=== PATIENT | female | born 1990 | race Caucasian/White ===

== ENCOUNTER 2019-01-12 09:26 | Inpatient (IN) | payer BC ==
[2019-01-12 09:58] LABS: ADD MAN DIFF? NO
[2019-01-12 10:01] LABS: BASOPHIL # 0.1 10^3/ul (0.0-0.1); BASOPHILS % 0.6 % (0.0-2.0); EOSINOPHILS # 0.1 10^3/ul (0.0-0.5); EOSINOPHILS % 0.8 % (0.0-7.0); HEMATOCRIT 43.4 % (37.0-47.0); HEMOGLOBIN 13.1 g/dl (12.0-16.0); LYMPHOCYTES # 3.4 10^3/ul (0.8-2.9); MEAN CORPUSCULAR HEMOGLOBIN 27.4 pg (29.0-33.0); MEAN CORPUSCULAR HGB CONC 30.2 g/dl (32.0-37.0); MEAN CORPUSCULAR VOLUME 90.8 fl (82.0-101.0); MEAN PLATELET VOLUME 9.3 fl (7.4-10.4); MONOCYTE # 0.8 10^3/ul (0.3-0.9); MONOCYTES % 5.2 % (0.0-11.0); NEUTROPHIL # 10.8 10^3/ul (1.6-7.5); NEUTROPHILS % 70.9 % (39.0-77.0); PLATELET COUNT 206 10^3/UL (140-415); RED BLOOD COUNT 4.78 10^6/ul (4.20-5.40); RED CELL DISTRIBUTION WIDTH 13.3 % (11.5-14.5)
[2019-01-12 10:01] LABS: WHITE BLOOD COUNT 15.3 10^3/ul (4.8-10.8)
[2019-01-12 10:08] LABS: PARTIAL THROMBOPLASTIN TIME 32.2 Sec (23.0-35.0); PROTIME 14.3 Sec (11.9-14.9); PT RATIO 1.1
[2019-01-12 10:11] LABS: ALBUMIN/GLOBULIN RATIO 1.35; ALKALINE PHOSPHATASE 85 IU/L (42-121); ANION GAP 35 (5-13); ASPARTATE AMINO TRANSFERASE 16 IU/L (15-46); BILIRUBIN,INDIRECT 0.2 mg/dl (0-1.1); BILIRUBIN,TOTAL 0.2 mg/dl (0.2-1.3); BLOOD UREA NITROGEN 65 mg/dl (7-20); CALCIUM 9.2 mg/dl (8.4-10.2); CARBON DIOXIDE 10 mmol/L (21-31); CHLORIDE 96 mmol/L (97-110); GLUCOSE 133 mg/dl (70-220); POTASSIUM 4.8 mmol/L (3.5-5.1); SODIUM 141 mmol/L (135-144); TOTAL PROTEIN 8.7 g/dl (6.1-8.1)
[2019-01-12 10:12] LABS: ALANINE AMINOTRANSFERASE < 6 IU/L (13-69)
[2019-01-12] MEDS: HYDROmorphONE 1 MG/ML SYG IV (10:28)
[2019-01-12] MEDS: LEVETIRACETAM 1000 MG (PMX) 100 ML IVPB (10:29)
[2019-01-12] MEDS: ONDANSETRON 4 MG INJ IV ×2 (10:29→15:23)
[2019-01-12 11:02] LABS: CREATININE 24.34 mg/dl (0.44-1.00); Estimated GFR 2 mL/min (>60)
[2019-01-12] MEDS ORDERED: ACETAMINOPHEN 325 MG TAB PO (13:00)
[2019-01-12] MEDS ORDERED: ONDANSETRON 4 MG INJ IV (13:00)
[2019-01-12] MEDS ORDERED: NACL 0.9% 3 ML SYG IV (14:00)
[2019-01-12] MEDS ORDERED: LORAZEPAM 2 MG INJ IV (14:00)
[2019-01-12] MEDS: SEVELAMER CARBONATE 0.8 GM PKT PO (18:00)
[2019-01-12] MEDS ORDERED: AMPHOTERICIN B LIPOSOME 300 MG in DEXTROSE 5% 300 ML IVPB (18:00)
[2019-01-12] MEDS ORDERED: VANCOMYCIN IV PER PHARMACY XX (18:00)
[2019-01-12] MEDS: FAMOTIDINE 20 MG TAB PO (18:03)
[2019-01-12] MEDS: DEXAMETHASONE 10 MG/ML 1 ML INJ IV (18:11)
[2019-01-12 19:16] LABS: HIV 1&2 ANTIBODY NEGATIVE (NEGATIVE)
[2019-01-12] MEDS ORDERED: LABETALOL HCL 20MG INJ IV (20:00)
[2019-01-12] MEDS ORDERED: DEXTROSE 50% 50 ML SYRINGE IV ×2 (21:00)
[2019-01-12] MEDS ORDERED: GLUCAGON 1 MG INJ IM (21:00)
[2019-01-12] MEDS ORDERED: GLUCOSE GEL 15 GRAM TUBE BUCCAL (21:00)
[2019-01-12] MEDS ORDERED: GLUCOSE GEL 15 GRAM TUBE PO ×2 (21:00)
[2019-01-12] MEDS: METOPROLOL 25 MG TAB PO (21:00)
[2019-01-12] MEDS ORDERED: LEVETIRACETAM 500 MG (PMX) 100 ML IVPB (21:00)
[2019-01-12] MEDS: INSULIN ASPART [NOVOLOG] 3 ML PEN SC (21:00)
[2019-01-12] MEDS: hydrALAzine 20 MG INJ IV (22:12)
[2019-01-12] MEDS: SOD CHLORIDE 0.9% 1,000 ML IV (23:03)
[2019-01-12] MEDS: HEPARIN 1000 UNITS/ML 10 ML INJ CATHETER (23:24)
[2019-01-12] MEDS: AMPICILLIN 2 GM/NS (PMX) 100 ML IVPB (23:48)
[2019-01-12] MEDS: CEFEPIME 1GM/50 ML (PMX) 50 ML IVPB (23:48)
[2019-01-13] MEDS: INSULIN ASPART [NOVOLOG] 3 ML PEN SC ×6 (01:00→21:00)
[2019-01-13] MEDS: LEVETIRACETAM IV 250 MG in DEXTROSE 5% 100 ML IVPB ×3 (01:13→21:06)
[2019-01-13] MEDS: VANCOMYCIN 1.25 GM/NS 250 ML 250 ML IVPB (01:13)
[2019-01-13] MEDS: morphine 2 MG INJ IV (01:24)
[2019-01-13] MEDS: ONDANSETRON 4 MG INJ IV (01:25)
[2019-01-13] MEDS: DEXAMETHASONE 10 MG/ML 1 ML INJ IV ×4 (01:25→17:51)
[2019-01-13] MEDS: hydrALAzine 20 MG INJ IV ×3 (01:25→16:30)
[2019-01-13] MEDS: HEPARIN 5,000 UNIT/1 ML VIAL SC ×3 (01:27→21:21)
[2019-01-13] MEDS: SOD CHLORIDE 0.9% IVPB (01:27)
[2019-01-13] MEDS: ACYCLOVIR IVPB (01:27)
[2019-01-13] MEDS: ACCU-CHEK XX (01:30)
[2019-01-13] MEDS: VORICONAZOLE 400 MG in DEXTROSE 5% 100 ML IVPB ×2 (02:39→12:45)
[2019-01-13 05:14] LABS: ADD MAN DIFF? NO
[2019-01-13 05:16] LABS: ABNORMAL IP MESSAGE 1; BASOPHILS % 0.1 % (0.0-2.0); HEMATOCRIT 36.8 % (37.0-47.0); HEMOGLOBIN 11.9 g/dl (12.0-16.0); LYMPHOCYTES # 0.2 10^3/ul (0.8-2.9); LYMPHOCYTES % 1.6 % (15.0-51.0); MEAN CORPUSCULAR HEMOGLOBIN 27.8 pg (29.0-33.0); MEAN CORPUSCULAR HGB CONC 32.3 g/dl (32.0-37.0); MEAN PLATELET VOLUME 10.1 fl (7.4-10.4); MONOCYTE # 0.1 10^3/ul (0.3-0.9); MONOCYTES % 0.3 % (0.0-11.0); NEUTROPHIL # 14.1 10^3/ul (1.6-7.5); PLATELET COUNT 183 10^3/UL (140-415); RED BLOOD COUNT 4.28 10^6/ul (4.20-5.40); RED CELL DISTRIBUTION WIDTH 13.6 % (11.5-14.5)
[2019-01-13 05:16] LABS: WHITE BLOOD COUNT 14.6 10^3/ul (4.8-10.8)
[2019-01-13 05:19] LABS: POSITIVE DIFF @See below
[2019-01-13 05:41] LABS: ALANINE AMINOTRANSFERASE 11 IU/L (13-69); ALBUMIN 4.4 g/dl (3.3-4.9); ALBUMIN/GLOBULIN RATIO 1.29; ALKALINE PHOSPHATASE 78 IU/L (42-121); ANION GAP 20 (5-13); ASPARTATE AMINO TRANSFERASE 10 IU/L (15-46); BILIRUBIN,INDIRECT 0.3 mg/dl (0-1.1); BILIRUBIN,TOTAL 0.3 mg/dl (0.2-1.3); BLOOD UREA NITROGEN 48 mg/dl (7-20); CALCIUM 9.3 mg/dl (8.4-10.2); CARBON DIOXIDE 23 mmol/L (21-31); CHLORIDE 98 mmol/L (97-110); GLUCOSE 115 mg/dl (70-220); MAGNESIUM 2.3 mg/dl (1.7-2.5); SODIUM 141 mmol/L (135-144); TOTAL PROTEIN 7.8 g/dl (6.1-8.1)
[2019-01-13 05:48] LABS: CREATININE 17.55 mg/dl (0.44-1.00); Estimated GFR 2 mL/min (>60)
[2019-01-13 06:01] LABS: THYROID STIMULATING HORMONE 0.434 MIU/L (0.465-4.680)
[2019-01-13] MEDS: SEVELAMER CARBONATE 0.8 GM PKT PO ×3 (07:35→17:51)
[2019-01-13] MEDS: KETOROLAC 15 MG INJ IV (08:58)
[2019-01-13] MEDS: ACETAMINOPHEN 325 MG TAB PO (08:58)
[2019-01-13] MEDS: METOPROLOL 25 MG TAB PO ×2 (09:28→21:06)
[2019-01-13] MEDS: FAMOTIDINE 20 MG TAB PO (09:28)
[2019-01-13] MEDS: AMPICILLIN 2 GM/NS (PMX) 100 ML IVPB (09:51)
[2019-01-13] MEDS ORDERED: DEXTROSE 5%-0.45% NACL 1,000 ML IV (10:00)
[2019-01-13] MEDS: ACETAMINOPHEN 1000MG/100ML IV 100 ML IVPB (12:56)
[2019-01-13 13:04] LABS: COMPLEMENT C3 68 mg/dl (88-165); COMPLEMENT C4 29 mg/dl (14-44)
[2019-01-13 13:17] LABS: CSF WBC 5 /cmm (0-10)
[2019-01-13 13:18] LABS: CSF WBC 5 /cmm (0-10)
[2019-01-13 13:22] LABS: CSF COLOR COLORLESS
[2019-01-13 13:22] LABS: CSF CLARITY CLEAR
[2019-01-13 13:23] LABS: CSF#TUBE COUNT TUBE#4; CSF#TUBES REC'D 4
[2019-01-13 13:24] LABS: CSF RBC < 2000 /uL (0-0)
[2019-01-13 13:25] LABS: CSF CLARITY CLEAR; CSF COLOR COLORLESS; CSF RBC < 2000 /uL (0-0); CSF#TUBE COUNT TUBE#1; CSF#TUBES REC'D 4
[2019-01-13 13:26] LABS: TOTAL PROTEIN,CSF 56 mg/dl (12-60)
[2019-01-13 13:26] LABS: GLUCOSE,CSF 78 mg/dl (50-80)
[2019-01-13 15:19] LABS: HEPATITIS B SURFACE ANTIGEN NEGATIVE (NEGATIVE)
[2019-01-13 15:36] LABS: HEPATITIS B SURFACE ANTIBODY NEGATIVE (NEGATIVE)
[2019-01-13 15:36] LABS: HEPATITIS C VIRAL ANTIBODY NEGATIVE (NEGATIVE)
[2019-01-13] MEDS: HEPARIN 1000 UNITS/ML 10 ML INJ CATHETER (17:34)
[2019-01-13] MEDS: CEFEPIME 1GM/50 ML (PMX) 50 ML IVPB (17:51)
[2019-01-13] MEDS ORDERED: FLUCONAZOLE 200 MG (PMX) 100 ML IVPB (21:00)
[2019-01-13] MEDS: BISACODYL (EC) 5 MG TAB PO (21:13)
[2019-01-14] MEDS: DEXAMETHASONE 10 MG/ML 1 ML INJ IV ×2 (00:15→05:13)
[2019-01-14] MEDS: INSULIN ASPART [NOVOLOG] 3 ML PEN SC ×6 (01:05→21:00)
[2019-01-14] MEDS: ACCU-CHEK XX (01:06)
[2019-01-14 05:23] LABS: ADD MAN DIFF? NO
[2019-01-14 05:33] LABS: ABNORMAL IP MESSAGE 1; BASOPHILS % 0.1 % (0.0-2.0); HEMATOCRIT 38.1 % (37.0-47.0); HEMOGLOBIN 12.1 g/dl (12.0-16.0); LYMPHOCYTES # 0.5 10^3/ul (0.8-2.9); LYMPHOCYTES % 2.4 % (15.0-51.0); MEAN CORPUSCULAR HEMOGLOBIN 27.8 pg (29.0-33.0); MEAN CORPUSCULAR HGB CONC 31.8 g/dl (32.0-37.0); MEAN CORPUSCULAR VOLUME 87.4 fl (82.0-101.0); MEAN PLATELET VOLUME 10.2 fl (7.4-10.4); MONOCYTE # 0.2 10^3/ul (0.3-0.9); MONOCYTES % 1.2 % (0.0-11.0); NEUTROPHIL # 19.2 10^3/ul (1.6-7.5); NEUTROPHILS % 95.8 % (39.0-77.0); PLATELET COUNT 196 10^3/UL (140-415); RED BLOOD COUNT 4.36 10^6/ul (4.20-5.40); RED CELL DISTRIBUTION WIDTH 13.7 % (11.5-14.5)
[2019-01-14 05:58] LABS: POSITIVE DIFF @See below
[2019-01-14 06:01] LABS: VANCOMYCIN,RANDOM 24.1 ug/ml
[2019-01-14 06:09] LABS: MAGNESIUM 2.3 mg/dl (1.7-2.5)
[2019-01-14 06:14] LABS: ALANINE AMINOTRANSFERASE 13 IU/L (13-69); ALBUMIN 4.4 g/dl (3.3-4.9); ALBUMIN/GLOBULIN RATIO 1.25; ALKALINE PHOSPHATASE 75 IU/L (42-121); ANION GAP 14 (5-13); ASPARTATE AMINO TRANSFERASE 11 IU/L (15-46); BILIRUBIN,INDIRECT 0.2 mg/dl (0-1.1); BILIRUBIN,TOTAL 0.2 mg/dl (0.2-1.3); BLOOD UREA NITROGEN 39 mg/dl (7-20); CARBON DIOXIDE 30 mmol/L (21-31); CHLORIDE 93 mmol/L (97-110); CREATININE 13.08 mg/dl (0.44-1.00); Estimated GFR 3 mL/min (>60); GLUCOSE 120 mg/dl (70-220); SODIUM 137 mmol/L (135-144); TOTAL PROTEIN 7.9 g/dl (6.1-8.1)
[2019-01-14 07:11] LABS: POTASSIUM 5.2 mmol/L (3.5-5.1)
[2019-01-14] MEDS: METOPROLOL 25 MG TAB PO ×2 (08:28→20:47)
[2019-01-14] MEDS: SEVELAMER CARBONATE 0.8 GM PKT PO ×3 (08:28→17:39)
[2019-01-14] MEDS: LEVETIRACETAM IV 250 MG in DEXTROSE 5% 100 ML IVPB ×2 (08:28→21:17)
[2019-01-14] MEDS: FAMOTIDINE 20 MG TAB PO (08:28)
[2019-01-14] MEDS: HEPARIN 5,000 UNIT/1 ML VIAL SC ×2 (08:30→20:51)
[2019-01-14 13:47] LABS: ANA SCREEN NEGATIVE (NEGATIVE)
[2019-01-14] MEDS: CEFEPIME 1GM/50 ML (PMX) 50 ML IVPB (17:40)
[2019-01-14 23:18] LABS: COMPLEMENT, TOTAL (CH50) >60 U/mL (31-60)
[2019-01-15] MEDS: INSULIN ASPART [NOVOLOG] 3 ML PEN SC ×6 (01:00→21:00)
[2019-01-15] MEDS: ACCU-CHEK XX (01:37)
[2019-01-15 06:04] LABS: ADD MAN DIFF? NO
[2019-01-15 06:14] LABS: ABNORMAL IP MESSAGE 1; HEMOGLOBIN 11.6 g/dl (12.0-16.0); LYMPHOCYTES # 0.6 10^3/ul (0.8-2.9); LYMPHOCYTES % 2.9 % (15.0-51.0); MEAN CORPUSCULAR HGB CONC 32.2 g/dl (32.0-37.0); MEAN PLATELET VOLUME 10.5 fl (7.4-10.4); MONOCYTE # 0.6 10^3/ul (0.3-0.9); MONOCYTES % 2.5 % (0.0-11.0); NEUTROPHIL # 20.2 10^3/ul (1.6-7.5); NEUTROPHILS % 93.9 % (39.0-77.0); PLATELET COUNT 181 10^3/UL (140-415); RED BLOOD COUNT 4.14 10^6/ul (4.20-5.40); RED CELL DISTRIBUTION WIDTH 13.3 % (11.5-14.5)
[2019-01-15 06:14] LABS: WHITE BLOOD COUNT 21.6 10^3/ul (4.8-10.8)
[2019-01-15 06:36] LABS: POSITIVE DIFF @See below
[2019-01-15 07:21] LABS: MAGNESIUM 2.3 mg/dl (1.7-2.5)
[2019-01-15 07:31] LABS: ALANINE AMINOTRANSFERASE 11 IU/L (13-69); ALBUMIN/GLOBULIN RATIO 1.25; ALKALINE PHOSPHATASE 74 IU/L (42-121); ANION GAP 18 (5-13); ASPARTATE AMINO TRANSFERASE 10 IU/L (15-46); BILIRUBIN,INDIRECT 0.1 mg/dl (0-1.1); BILIRUBIN,TOTAL 0.1 mg/dl (0.2-1.3); BLOOD UREA NITROGEN 74 mg/dl (7-20); CALCIUM 9.1 mg/dl (8.4-10.2); CARBON DIOXIDE 26 mmol/L (21-31); CHLORIDE 92 mmol/L (97-110); GLUCOSE 109 mg/dl (70-220); SODIUM 136 mmol/L (135-144); TOTAL PROTEIN 7.2 g/dl (6.1-8.1)
[2019-01-15 07:47] LABS: CREATININE 15.58 mg/dl (0.44-1.00); Estimated GFR 3 mL/min (>60)
[2019-01-15 07:49] LABS: POTASSIUM 6.1 mmol/L (3.5-5.1)
[2019-01-15] MEDS: SEVELAMER CARBONATE 0.8 GM PKT PO ×3 (08:24→17:28)
[2019-01-15] MEDS: FAMOTIDINE 20 MG TAB PO (08:24)
[2019-01-15] MEDS: METOPROLOL 25 MG TAB PO ×2 (08:26→21:06)
[2019-01-15] MEDS: hydrALAzine 20 MG INJ IV ×2 (08:27→22:06)
[2019-01-15] MEDS: HEPARIN 5,000 UNIT/1 ML VIAL SC ×2 (08:40→21:26)
[2019-01-15] MEDS: LEVETIRACETAM IV 250 MG in DEXTROSE 5% 100 ML IVPB ×2 (09:28→22:06)
[2019-01-15 10:39] LABS: POTASSIUM 5.2 mmol/L (3.5-5.1)
[2019-01-15 14:07] LABS: ANA SCREEN NEGATIVE (NEGATIVE); ANTI-DNA (DOUBLE STRANDED) <95 U/mL (< 301)
[2019-01-15 16:31] LABS: WEST NILE VIRUS ANTIBODY (IGG) 3.27 index; WEST NILE VIRUS ANTIBODY (IGM) <0.90 index
[2019-01-15] MEDS: CEFEPIME 1GM/50 ML (PMX) 50 ML IVPB (18:23)
[2019-01-16] MEDS: DIPHENHYDRAMINE 50 MG INJ IV (00:08)
[2019-01-16] MEDS: ACCU-CHEK XX (02:00)
[2019-01-16 05:56] LABS: ADD MAN DIFF? NO
[2019-01-16 06:11] LABS: WHITE BLOOD COUNT 20.9 10^3/ul (4.8-10.8)
[2019-01-16 06:11] LABS: BASOPHILS % 0.1 % (0.0-2.0); LYMPHOCYTES # 1.4 10^3/ul (0.8-2.9); LYMPHOCYTES % 6.9 % (15.0-51.0); MEAN CORPUSCULAR HEMOGLOBIN 28.1 pg (29.0-33.0); MEAN CORPUSCULAR HGB CONC 32.4 g/dl (32.0-37.0); MEAN CORPUSCULAR VOLUME 86.7 fl (82.0-101.0); MEAN PLATELET VOLUME 10.6 fl (7.4-10.4); MONOCYTE # 1.4 10^3/ul (0.3-0.9); MONOCYTES % 6.7 % (0.0-11.0); NEUTROPHIL # 17.8 10^3/ul (1.6-7.5); NEUTROPHILS % 85.3 % (39.0-77.0); PLATELET COUNT 196 10^3/UL (140-415); RED BLOOD COUNT 4.27 10^6/ul (4.20-5.40); RED CELL DISTRIBUTION WIDTH 13.7 % (11.5-14.5)
[2019-01-16 06:42] LABS: ANION GAP 19 (5-13); BLOOD UREA NITROGEN 106 mg/dl (7-20); CALCIUM 8.4 mg/dl (8.4-10.2); CARBON DIOXIDE 23 mmol/L (21-31); CHLORIDE 92 mmol/L (97-110); GLUCOSE 84 mg/dl (70-220); MAGNESIUM 2.2 mg/dl (1.7-2.5); PHOSPHORUS 7.2 mg/dl (2.5-4.9); POTASSIUM 5.7 mmol/L (3.5-5.1); SODIUM 134 mmol/L (135-144)
[2019-01-16 06:48] LABS: CREATININE 16.76 mg/dl (0.44-1.00); Estimated GFR 3 mL/min (>60)
[2019-01-16] MEDS: INSULIN ASPART [NOVOLOG] 3 ML PEN SC ×4 (07:00→20:48)
[2019-01-16] MEDS: SEVELAMER CARBONATE 0.8 GM PKT PO ×3 (08:03→17:30)
[2019-01-16] MEDS: FAMOTIDINE 20 MG TAB PO (08:57)
[2019-01-16] MEDS: METOPROLOL 25 MG TAB PO ×2 (09:00→20:48)
[2019-01-16] MEDS: HEPARIN 5,000 UNIT/1 ML VIAL SC ×2 (09:04→21:31)
[2019-01-16] MEDS: LEVETIRACETAM IV 250 MG in DEXTROSE 5% 100 ML IVPB ×2 (09:54→21:29)
[2019-01-16] MEDS: HEPARIN 1000 UNITS/ML 10 ML INJ CATHETER (13:17)
[2019-01-16] MEDS: DIPHENHYDRAMINE 25 MG CAP PO (20:47)
[2019-01-16 21:36] LABS: VDRL, CSF NON-REACTIVE
[2019-01-17] MEDS: ACCU-CHEK XX (02:00)
[2019-01-17 05:44] LABS: ADD MAN DIFF? NO
[2019-01-17 05:52] LABS: BASOPHILS % 0.2 % (0.0-2.0); EOSINOPHILS # 0.2 10^3/ul (0.0-0.5); EOSINOPHILS % 1.6 % (0.0-7.0); HEMATOCRIT 38.5 % (37.0-47.0); HEMOGLOBIN 12.4 g/dl (12.0-16.0); LYMPHOCYTES # 1.8 10^3/ul (0.8-2.9); LYMPHOCYTES % 17.4 % (15.0-51.0); MEAN CORPUSCULAR HEMOGLOBIN 27.9 pg (29.0-33.0); MEAN CORPUSCULAR HGB CONC 32.2 g/dl (32.0-37.0); MEAN CORPUSCULAR VOLUME 86.7 fl (82.0-101.0); MONOCYTES % 9.5 % (0.0-11.0); NEUTROPHIL # 7.3 10^3/ul (1.6-7.5); NEUTROPHILS % 70.4 % (39.0-77.0); PLATELET COUNT 176 10^3/UL (140-415); RED BLOOD COUNT 4.44 10^6/ul (4.20-5.40); RED CELL DISTRIBUTION WIDTH 13.6 % (11.5-14.5)
[2019-01-17 05:52] LABS: WHITE BLOOD COUNT 10.4 10^3/ul (4.8-10.8)
[2019-01-17 06:09] LABS: ANION GAP 18 (5-13); BLOOD UREA NITROGEN 99 mg/dl (7-20); CARBON DIOXIDE 27 mmol/L (21-31); CHLORIDE 93 mmol/L (97-110); CREATININE 13.63 mg/dl (0.44-1.00); Estimated GFR 3 mL/min (>60); GLUCOSE 83 mg/dl (70-220); MAGNESIUM 2.1 mg/dl (1.7-2.5); PHOSPHORUS 6.4 mg/dl (2.5-4.9); POTASSIUM 5.8 mmol/L (3.5-5.1); SODIUM 138 mmol/L (135-144)
[2019-01-17] MEDS: INSULIN ASPART [NOVOLOG] 3 ML PEN SC ×4 (07:00→21:00)
[2019-01-17] MEDS: SEVELAMER CARBONATE 0.8 GM PKT PO ×3 (09:58→17:56)
[2019-01-17] MEDS: LEVETIRACETAM IV 250 MG in DEXTROSE 5% 100 ML IVPB ×2 (09:58→21:47)
[2019-01-17] MEDS: FAMOTIDINE 20 MG TAB PO (09:58)
[2019-01-17] MEDS: METOPROLOL 25 MG TAB PO ×2 (09:59→21:47)
[2019-01-17] MEDS: HEPARIN 5,000 UNIT/1 ML VIAL SC ×2 (10:06→22:03)
[2019-01-17] MEDS: ACETAMINOPHEN 325 MG TAB PO ×2 (17:29→21:46)
[2019-01-17] MEDS: hydrALAzine 20 MG INJ IV (17:54)
[2019-01-17] MEDS: HYDROCODONE/APAP (5/325) TAB PO ×2 (18:24→23:05)
[2019-01-17] MEDS: HEPARIN 1000 UNITS/ML 10 ML INJ CATHETER (19:25)
[2019-01-17] MEDS: DIPHENHYDRAMINE 25 MG CAP PO (22:00)
[2019-01-17] MEDS: ONDANSETRON 4 MG INJ IV (22:00)
[2019-01-18] MEDS: morphine 2 MG INJ IV (01:12)
[2019-01-18] MEDS: ACCU-CHEK XX (02:00)
[2019-01-18 05:30] LABS: ADD MAN DIFF? NO
[2019-01-18 05:57] LABS: EOSINOPHILS # 0.3 10^3/ul (0.0-0.5); EOSINOPHILS % 4.7 % (0.0-7.0); HEMATOCRIT 36.4 % (37.0-47.0); HEMOGLOBIN 11.6 g/dl (12.0-16.0); LYMPHOCYTES # 1.7 10^3/ul (0.8-2.9); LYMPHOCYTES % 23.2 % (15.0-51.0); MEAN CORPUSCULAR HEMOGLOBIN 27.9 pg (29.0-33.0); MEAN CORPUSCULAR HGB CONC 31.9 g/dl (32.0-37.0); MEAN CORPUSCULAR VOLUME 87.5 fl (82.0-101.0); MEAN PLATELET VOLUME 9.9 fl (7.4-10.4); MONOCYTE # 0.6 10^3/ul (0.3-0.9); NEUTROPHIL # 4.6 10^3/ul (1.6-7.5); NEUTROPHILS % 63.5 % (39.0-77.0); PLATELET COUNT 167 10^3/UL (140-415); RED BLOOD COUNT 4.16 10^6/ul (4.20-5.40); RED CELL DISTRIBUTION WIDTH 13.8 % (11.5-14.5)
[2019-01-18 05:57] LABS: WHITE BLOOD COUNT 7.2 10^3/ul (4.8-10.8)
[2019-01-18 06:10] LABS: ALBUMIN 3.7 g/dl (3.3-4.9); ANION GAP 10 (5-13); BLOOD UREA NITROGEN 59 mg/dl (7-20); CALCIUM 9.2 mg/dl (8.4-10.2); CARBON DIOXIDE 30 mmol/L (21-31); CHLORIDE 95 mmol/L (97-110); CREATININE 9.95 mg/dl (0.44-1.00); GLUCOSE 86 mg/dl (70-220); MAGNESIUM 2.2 mg/dl (1.7-2.5); PHOSPHORUS 6.7 mg/dl (2.5-4.9); POTASSIUM 5.2 mmol/L (3.5-5.1); SODIUM 135 mmol/L (135-144)
[2019-01-18] MEDS: INSULIN ASPART [NOVOLOG] 3 ML PEN SC ×4 (07:00→21:00)
[2019-01-18] MEDS: LEVETIRACETAM IV 250 MG in DEXTROSE 5% 100 ML IVPB ×2 (09:14→21:41)
[2019-01-18] MEDS: SEVELAMER CARBONATE 0.8 GM PKT PO ×3 (09:14→17:39)
[2019-01-18] MEDS: FAMOTIDINE 20 MG TAB PO (09:14)
[2019-01-18] MEDS: METOPROLOL 25 MG TAB PO ×2 (09:15→21:41)
[2019-01-18] MEDS: HEPARIN 5,000 UNIT/1 ML VIAL SC ×2 (09:27→21:49)
[2019-01-18] MEDS: HYDROCODONE/APAP (5/325) TAB PO ×2 (15:32→22:26)
[2019-01-18] MEDS: HEPARIN 1000 UNITS/ML 10 ML INJ CATHETER (17:11)
[2019-01-18] MEDS: TOPIRAMATE 25 MG TAB PO (21:41)
[2019-01-18] MEDS: ONDANSETRON 4 MG INJ IV (22:20)
[2019-01-19] MEDS: ACCU-CHEK XX (02:00)
[2019-01-19 05:24] LABS: ADD MAN DIFF? NO
[2019-01-19 05:30] LABS: BASOPHILS % 0.1 % (0.0-2.0); EOSINOPHILS # 0.4 10^3/ul (0.0-0.5); EOSINOPHILS % 4.5 % (0.0-7.0); HEMOGLOBIN 12.2 g/dl (12.0-16.0); LYMPHOCYTES # 1.6 10^3/ul (0.8-2.9); LYMPHOCYTES % 18.9 % (15.0-51.0); MEAN CORPUSCULAR HEMOGLOBIN 27.9 pg (29.0-33.0); MEAN CORPUSCULAR HGB CONC 32.1 g/dl (32.0-37.0); MEAN CORPUSCULAR VOLUME 86.8 fl (82.0-101.0); MEAN PLATELET VOLUME 10.7 fl (7.4-10.4); MONOCYTE # 0.8 10^3/ul (0.3-0.9); MONOCYTES % 9.7 % (0.0-11.0); NEUTROPHIL # 5.7 10^3/ul (1.6-7.5); NEUTROPHILS % 65.9 % (39.0-77.0); PLATELET COUNT 210 10^3/UL (140-415); RED BLOOD COUNT 4.38 10^6/ul (4.20-5.40); RED CELL DISTRIBUTION WIDTH 13.5 % (11.5-14.5)
[2019-01-19 05:30] LABS: WHITE BLOOD COUNT 8.6 10^3/ul (4.8-10.8)
[2019-01-19] MEDS: INSULIN ASPART [NOVOLOG] 3 ML PEN SC ×4 (05:36→22:00)
[2019-01-19 05:53] LABS: ALBUMIN 4.1 g/dl (3.3-4.9); ANION GAP 12 (5-13); BLOOD UREA NITROGEN 56 mg/dl (7-20); CALCIUM 9.5 mg/dl (8.4-10.2); CARBON DIOXIDE 31 mmol/L (21-31); CHLORIDE 92 mmol/L (97-110); GLUCOSE 80 mg/dl (70-220); MAGNESIUM 2.3 mg/dl (1.7-2.5); PHOSPHORUS 6.2 mg/dl (2.5-4.9); POTASSIUM 5.7 mmol/L (3.5-5.1); SODIUM 135 mmol/L (135-144)
[2019-01-19] MEDS: FAMOTIDINE 20 MG TAB PO (07:54)
[2019-01-19] MEDS: LEVETIRACETAM IV 250 MG in DEXTROSE 5% 100 ML IVPB (07:54)
[2019-01-19] MEDS: SEVELAMER CARBONATE 0.8 GM PKT PO ×3 (07:54→16:58)
[2019-01-19] MEDS: TOPIRAMATE 25 MG TAB PO ×2 (07:54→22:00)
[2019-01-19] MEDS: METOPROLOL 25 MG TAB PO ×2 (07:54→22:01)
[2019-01-19] MEDS: HEPARIN 5,000 UNIT/1 ML VIAL SC ×2 (08:01→22:14)
[2019-01-20] MEDS: ACCU-CHEK XX (01:59)
[2019-01-20 05:44] LABS: ADD MAN DIFF? NO
[2019-01-20 05:47] LABS: BASOPHILS % 0.2 % (0.0-2.0); EOSINOPHILS # 0.4 10^3/ul (0.0-0.5); EOSINOPHILS % 3.4 % (0.0-7.0); HEMATOCRIT 33.9 % (37.0-47.0); HEMOGLOBIN 10.9 g/dl (12.0-16.0); LYMPHOCYTES # 1.9 10^3/ul (0.8-2.9); LYMPHOCYTES % 17.1 % (15.0-51.0); MEAN CORPUSCULAR HEMOGLOBIN 27.9 pg (29.0-33.0); MEAN CORPUSCULAR HGB CONC 32.2 g/dl (32.0-37.0); MEAN CORPUSCULAR VOLUME 86.9 fl (82.0-101.0); MEAN PLATELET VOLUME 10.6 fl (7.4-10.4); MONOCYTE # 1.1 10^3/ul (0.3-0.9); MONOCYTES % 9.7 % (0.0-11.0); NEUTROPHIL # 7.8 10^3/ul (1.6-7.5); NEUTROPHILS % 68.7 % (39.0-77.0); PLATELET COUNT 218 10^3/UL (140-415); RED CELL DISTRIBUTION WIDTH 13.4 % (11.5-14.5)
[2019-01-20 05:47] LABS: WHITE BLOOD COUNT 11.4 10^3/ul (4.8-10.8)
[2019-01-20 06:02] LABS: ANION GAP 13 (5-13); BLOOD UREA NITROGEN 80 mg/dl (7-20); CALCIUM 9.2 mg/dl (8.4-10.2); CARBON DIOXIDE 28 mmol/L (21-31); CHLORIDE 95 mmol/L (97-110); CREATININE 12.86 mg/dl (0.44-1.00); GLUCOSE 86 mg/dl (70-220); MAGNESIUM 2.6 mg/dl (1.7-2.5); SODIUM 136 mmol/L (135-144)
[2019-01-20 06:07] LABS: POTASSIUM 6.2 mmol/L (3.5-5.1)
[2019-01-20] MEDS: ALBUTEROL 0.083% (NEB) 2.5 MG/3 ML AMP HHN (06:18)
[2019-01-20] MEDS ORDERED: DEXTROSE 50% 50 ML SYRINGE IV (06:30)
[2019-01-20] MEDS: INSULIN REGULAR, HUMAN 100 UNIT/1 ML 3ML VIAL IVP (06:59)
[2019-01-20] MEDS: INSULIN ASPART [NOVOLOG] 3 ML PEN SC ×4 (07:00→21:00)
[2019-01-20] MEDS: DEXTROSE 50% 50 ML SYRINGE IV (07:00)
[2019-01-20] MEDS: METOPROLOL 25 MG TAB PO ×2 (09:00→21:48)
[2019-01-20] MEDS: LEVETIRACETAM 250 MG TAB PO ×2 (09:02→21:48)
[2019-01-20] MEDS: FAMOTIDINE 20 MG TAB PO (09:02)
[2019-01-20] MEDS: TOPIRAMATE 25 MG TAB PO ×2 (09:02→21:48)
[2019-01-20] MEDS: SEVELAMER CARBONATE 0.8 GM PKT PO ×3 (09:02→17:21)
[2019-01-20] MEDS: HEPARIN 5,000 UNIT/1 ML VIAL SC ×2 (09:08→21:53)
[2019-01-20] MEDS: NA POLYST SULFON 15 GM/60 ML BTL PO (09:14)
[2019-01-20] MEDS: HEPARIN 1000 UNITS/ML 10 ML INJ CATHETER (13:11)
[2019-01-20 14:02] LABS: ANION GAP 10 (5-13); BLOOD UREA NITROGEN 30 mg/dl (7-20); CALCIUM 9.1 mg/dl (8.4-10.2); CARBON DIOXIDE 35 mmol/L (21-31); CHLORIDE 95 mmol/L (97-110); CREATININE 5.52 mg/dl (0.44-1.00); Estimated GFR 9 mL/min (>60); GLUCOSE 98 mg/dl (70-220); POTASSIUM 3.6 mmol/L (3.5-5.1); SODIUM 140 mmol/L (135-144)
[2019-01-21] MEDS: ACCU-CHEK XX (02:00)
[2019-01-21 06:09] LABS: ADD MAN DIFF? NO
[2019-01-21 06:14] LABS: BASOPHILS % 0.1 % (0.0-2.0); EOSINOPHILS # 0.3 10^3/ul (0.0-0.5); EOSINOPHILS % 2.7 % (0.0-7.0); HEMATOCRIT 31.9 % (37.0-47.0); HEMOGLOBIN 10.1 g/dl (12.0-16.0); LYMPHOCYTES # 1.8 10^3/ul (0.8-2.9); LYMPHOCYTES % 18.1 % (15.0-51.0); MEAN CORPUSCULAR HGB CONC 31.7 g/dl (32.0-37.0); MEAN CORPUSCULAR VOLUME 88.4 fl (82.0-101.0); MEAN PLATELET VOLUME 10.1 fl (7.4-10.4); MONOCYTE # 1.2 10^3/ul (0.3-0.9); MONOCYTES % 12.2 % (0.0-11.0); NEUTROPHIL # 6.6 10^3/ul (1.6-7.5); PLATELET COUNT 219 10^3/UL (140-415); RED BLOOD COUNT 3.61 10^6/ul (4.20-5.40); RED CELL DISTRIBUTION WIDTH 13.5 % (11.5-14.5)
[2019-01-21 06:14] LABS: WHITE BLOOD COUNT 9.9 10^3/ul (4.8-10.8)
[2019-01-21 06:44] LABS: ALBUMIN 3.8 g/dl (3.3-4.9); ANION GAP 12 (5-13); BLOOD UREA NITROGEN 58 mg/dl (7-20); CARBON DIOXIDE 33 mmol/L (21-31); CHLORIDE 95 mmol/L (97-110); CREATININE 9.87 mg/dl (0.44-1.00); GLUCOSE 87 mg/dl (70-220); MAGNESIUM 2.2 mg/dl (1.7-2.5); POTASSIUM 5.1 mmol/L (3.5-5.1); SODIUM 140 mmol/L (135-144)
[2019-01-21] MEDS: INSULIN ASPART [NOVOLOG] 3 ML PEN SC ×4 (08:04→20:39)
[2019-01-21] MEDS: SEVELAMER CARBONATE 0.8 GM PKT PO ×3 (10:17→17:47)
[2019-01-21] MEDS: FAMOTIDINE 20 MG TAB PO (10:19)
[2019-01-21] MEDS: TOPIRAMATE 25 MG TAB PO ×2 (10:19→20:35)
[2019-01-21] MEDS: LEVETIRACETAM 250 MG TAB PO ×2 (10:19→20:35)
[2019-01-21] MEDS: METOPROLOL 25 MG TAB PO ×2 (10:19→20:35)
[2019-01-21] MEDS: HEPARIN 5,000 UNIT/1 ML VIAL SC ×2 (10:22→20:45)
[2019-01-21] MEDS: HYDROCODONE/APAP (5/325) TAB PO (18:36)
[2019-01-22] MEDS: ACCU-CHEK XX (02:00)
[2019-01-22 05:49] LABS: ADD MAN DIFF? NO
[2019-01-22 05:56] LABS: BASOPHILS % 0.3 % (0.0-2.0); EOSINOPHILS # 0.3 10^3/ul (0.0-0.5); EOSINOPHILS % 3.3 % (0.0-7.0); HEMATOCRIT 29.4 % (37.0-47.0); HEMOGLOBIN 9.2 g/dl (12.0-16.0); LYMPHOCYTES # 1.8 10^3/ul (0.8-2.9); LYMPHOCYTES % 22.8 % (15.0-51.0); MEAN CORPUSCULAR HEMOGLOBIN 27.5 pg (29.0-33.0); MEAN CORPUSCULAR HGB CONC 31.3 g/dl (32.0-37.0); MEAN PLATELET VOLUME 10.1 fl (7.4-10.4); MONOCYTE # 1.1 10^3/ul (0.3-0.9); MONOCYTES % 14.4 % (0.0-11.0); NEUTROPHIL # 4.6 10^3/ul (1.6-7.5); NEUTROPHILS % 58.3 % (39.0-77.0); PLATELET COUNT 239 10^3/UL (140-415); RED BLOOD COUNT 3.34 10^6/ul (4.20-5.40); RED CELL DISTRIBUTION WIDTH 13.3 % (11.5-14.5)
[2019-01-22 05:56] LABS: WHITE BLOOD COUNT 7.9 10^3/ul (4.8-10.8)
[2019-01-22 06:18] LABS: ALBUMIN 3.5 g/dl (3.3-4.9); ANION GAP 13 (5-13); BLOOD UREA NITROGEN 86 mg/dl (7-20); CALCIUM 9.1 mg/dl (8.4-10.2); CARBON DIOXIDE 32 mmol/L (21-31); CHLORIDE 92 mmol/L (97-110); CREATININE 12.52 mg/dl (0.44-1.00); GLUCOSE 81 mg/dl (70-220); MAGNESIUM 2.3 mg/dl (1.7-2.5); PHOSPHORUS 6.7 mg/dl (2.5-4.9); POTASSIUM 4.5 mmol/L (3.5-5.1); SODIUM 137 mmol/L (135-144)
[2019-01-22] MEDS: INSULIN ASPART [NOVOLOG] 3 ML PEN SC ×4 (07:00→21:00)
[2019-01-22] MEDS: METOPROLOL 25 MG TAB PO ×2 (09:00→20:57)
[2019-01-22] MEDS: LEVETIRACETAM 250 MG TAB PO ×2 (09:39→20:57)
[2019-01-22] MEDS: TOPIRAMATE 25 MG TAB PO ×2 (09:39→20:57)
[2019-01-22] MEDS: SEVELAMER CARBONATE 0.8 GM PKT PO ×3 (09:39→18:00)
[2019-01-22] MEDS: FAMOTIDINE 20 MG TAB PO (09:39)
[2019-01-22] MEDS: HEPARIN 5,000 UNIT/1 ML VIAL SC ×2 (09:42→21:02)
[2019-01-22] MEDS: HYDROCODONE/APAP (5/325) TAB PO (17:00)
[2019-01-22] MEDS: HEPARIN 1000 UNITS/ML 10 ML INJ CATHETER (18:30)
[2019-01-22] MEDS: ONDANSETRON 4 MG INJ IV (19:03)
[2019-01-22] MEDS: morphine 2 MG INJ IV (19:50)
[2019-01-23] MEDS: ACCU-CHEK XX (02:00)
[2019-01-23 05:16] LABS: ADD MAN DIFF? NO
[2019-01-23 05:26] LABS: WHITE BLOOD COUNT 6.2 10^3/ul (4.8-10.8)
[2019-01-23 05:26] LABS: BASOPHILS % 0.2 % (0.0-2.0); EOSINOPHILS # 0.1 10^3/ul (0.0-0.5); EOSINOPHILS % 2.3 % (0.0-7.0); HEMATOCRIT 28.8 % (37.0-47.0); HEMOGLOBIN 9.1 g/dl (12.0-16.0); LYMPHOCYTES # 1.3 10^3/ul (0.8-2.9); LYMPHOCYTES % 21.4 % (15.0-51.0); MEAN CORPUSCULAR HEMOGLOBIN 28.1 pg (29.0-33.0); MEAN CORPUSCULAR HGB CONC 31.6 g/dl (32.0-37.0); MEAN CORPUSCULAR VOLUME 88.9 fl (82.0-101.0); MEAN PLATELET VOLUME 9.8 fl (7.4-10.4); MONOCYTE # 0.9 10^3/ul (0.3-0.9); MONOCYTES % 14.1 % (0.0-11.0); NEUTROPHIL # 3.8 10^3/ul (1.6-7.5); NEUTROPHILS % 61.4 % (39.0-77.0); PLATELET COUNT 263 10^3/UL (140-415); RED BLOOD COUNT 3.24 10^6/ul (4.20-5.40); RED CELL DISTRIBUTION WIDTH 13.3 % (11.5-14.5)
[2019-01-23 06:01] LABS: ALBUMIN 3.8 g/dl (3.3-4.9); ANION GAP 8 (5-13); BLOOD UREA NITROGEN 50 mg/dl (7-20); CALCIUM 8.9 mg/dl (8.4-10.2); CARBON DIOXIDE 36 mmol/L (21-31); CHLORIDE 94 mmol/L (97-110); CREATININE 8.99 mg/dl (0.44-1.00); GLUCOSE 85 mg/dl (70-220); MAGNESIUM 2.1 mg/dl (1.7-2.5); PHOSPHORUS 4.8 mg/dl (2.5-4.9); POTASSIUM 5.3 mmol/L (3.5-5.1); SODIUM 138 mmol/L (135-144)
[2019-01-23] MEDS: INSULIN ASPART [NOVOLOG] 3 ML PEN SC ×2 (07:00→11:30)
[2019-01-23] MEDS: TOPIRAMATE 25 MG TAB PO (09:06)
[2019-01-23] MEDS: LEVETIRACETAM 250 MG TAB PO (09:06)
[2019-01-23] MEDS: FAMOTIDINE 20 MG TAB PO (09:07)
[2019-01-23] MEDS: METOPROLOL 25 MG TAB PO (09:07)
[2019-01-23] MEDS: SEVELAMER CARBONATE 0.8 GM PKT PO ×2 (09:07→12:45)
[2019-01-23] MEDS: INSULIN REGULAR, HUMAN 100 UNIT/1 ML 3ML VIAL IVP (09:09)
[2019-01-23] MEDS: HEPARIN 5,000 UNIT/1 ML VIAL SC (09:09)
[2019-01-23] MEDS ORDERED: DEXTROSE 50% 50 ML SYRINGE IV (09:30)
[2019-01-23] MEDS: NA POLYST SULFON 15 GM/60 ML BTL PO (10:24)
[2019-01-23] MEDS: INSULIN REGULAR HUMAN IVP (10:28)
== END 2019-01-23 16:35 | disposition home or self-care (01) | DRG 871 ==
LOC: 2NE 01-20 00:05 → E/R 09:26 → 6WM 01-14 14:03 → ICU 22:42
PROC: 5A1D70Z Performance of Urinary Filtration, Intermittent, Less than 6 Hours Per Day (ICD-10-PCS; 2019-01-12)
PROC: 009U3ZX Drainage of Spinal Canal, Percutaneous Approach, Diagnostic (ICD-10-PCS; principal; 2019-01-13)
PROC: B01BYZZ Fluoroscopy of Spinal Cord using Other Contrast (ICD-10-PCS; 2019-01-13)
DX: A41.9 Sepsis, unspecified organism (principal); N18.6 End stage renal disease; G92 Toxic encephalopathy; A92.30 West Nile virus infection, unspecified; I67.83 Posterior reversible encephalopathy syndrome; I12.0 Hypertensive chronic kidney disease with stage 5 chronic kidney disease or end stage renal disease; R56.9 Unspecified convulsions; Z99.2 Dependence on renal dialysis; Z91.81 History of falling
CPT/HCPCS: 36415; 70450; 70551; 71045; 80048; 80053; 80069; 80202; 82040; 82042; 82784; 82945; 82962; 83615; 83735; 83873; 83916; 84100; 84132; 84157; 84443; 84703; 85025; 85610; 85651; 85730; 86038; 86160; 86162; 86226; 86592; 86703; 86706; 86788; 86789; 86803; 87040-91; 87070; 87077; 87081; 87102; 87116; 87340; 87536; 88104; 89051; 90935; 92610; 93005; 93306; 94664; 95819; 96374; 96375; 99285-25

== ENCOUNTER 2019-02-07 11:57 | Emergency (ER) | payer BC ==
[2019-02-07] MEDS: morphine 2 MG INJ IV ×2 (12:55→14:45)
[2019-02-07] MEDS: ONDANSETRON 4 MG INJ IV (12:55)
[2019-02-07 12:58] LABS: ADD MAN DIFF? NO
[2019-02-07 13:04] LABS: WHITE BLOOD COUNT 6.4 10^3/ul (4.8-10.8)
[2019-02-07 13:04] LABS: ABNORMAL IP MESSAGE 1; BASOPHILS % 0.5 % (0.0-2.0); EOSINOPHILS # 0.1 10^3/ul (0.0-0.5); EOSINOPHILS % 2.2 % (0.0-7.0); HEMATOCRIT 24.9 % (37.0-47.0); HEMOGLOBIN 8.5 g/dl (12.0-16.0); LYMPHOCYTES # 0.6 10^3/ul (0.8-2.9); LYMPHOCYTES % 9.2 % (15.0-51.0); MEAN CORPUSCULAR HEMOGLOBIN 28.3 pg (29.0-33.0); MEAN CORPUSCULAR HGB CONC 34.1 g/dl (32.0-37.0); MEAN PLATELET VOLUME 9.8 fl (7.4-10.4); MONOCYTE # 0.5 10^3/ul (0.3-0.9); MONOCYTES % 7.8 % (0.0-11.0); NEUTROPHIL # 5.2 10^3/ul (1.6-7.5); PLATELET COUNT 346 10^3/UL (140-415); RED CELL DISTRIBUTION WIDTH 13.8 % (11.5-14.5)
[2019-02-07 13:08] LABS: POSITIVE DIFF @See below
[2019-02-07 13:23] LABS: ANION GAP 10 (5-13); BLOOD UREA NITROGEN 25 mg/dl (7-20); CALCIUM 8.9 mg/dl (8.4-10.2); CARBON DIOXIDE 33 mmol/L (21-31); CHLORIDE 90 mmol/L (97-110); CREATININE 7.01 mg/dl (0.44-1.00); Estimated GFR 7 mL/min (>60); GLUCOSE 94 mg/dl (70-220); INR 0.95; POTASSIUM 4.5 mmol/L (3.5-5.1); PROTIME 12.8 Sec (11.9-14.9); SODIUM 133 mmol/L (135-144)
== END 2019-02-07 16:00 | disposition home or self-care (01) ==
LOC: E/R 11:57
DX: I12.0 Hypertensive chronic kidney disease with stage 5 chronic kidney disease or end stage renal disease (principal); D64.9 Anemia, unspecified; N18.6 End stage renal disease; R40.2142 Coma scale, eyes open, spontaneous, at arrival to emergency department; R40.2362 Coma scale, best motor response, obeys commands, at arrival to emergency department; R40.2252 Coma scale, best verbal response, oriented, at arrival to emergency department; Z99.2 Dependence on renal dialysis
CPT/HCPCS: 80048; 85025; 85610; 85730; 96374; 96375; 96376; 99284-25